=== PATIENT | female | born 1960 | race Caucasian/White ===

== ENCOUNTER → 2016-12-22 | Outpatient (CLI) | payer OTHER ==
[~2016-12-22] MED LIST: ALBU90AE PO; CHOL200024 PO; IBUP400T PO; LEVO125T PO; LIOT5TAB6 PO; LORA10TA75 PO; [UNRECOGNIZED DRUG - REMARK] PO
[2016-12-22 15:12] LABS: ASPARTATE AMINO TRANSFERASE 23 U/L (15-37); BLOOD UREA NITROGEN 14 mg/dL (7-18)
== END | disposition home or self-care (01) ==
LOC: STAR 13:49
PROVIDERS: ATTEND Specialist
DX: Z01.818 Encounter for other preprocedural examination (principal); R19.07 Generalized intra-abdominal and pelvic swelling, mass and lump; D25.9 Leiomyoma of uterus, unspecified; Z90.710 Acquired absence of both cervix and uterus; Z90.722 Acquired absence of ovaries, bilateral; Z86.79 Personal history of other diseases of the circulatory system; Z98.890 Other specified postprocedural states
CPT/HCPCS: 36415; 71020; 80053; 85025; 85610; 85730; 93005

== ENCOUNTER 2017-01-06 08:40 | Day surgery (SDC) | payer OTHER ==
[~2017-01-06] VITALS: Ht 157.5 cm; Wt 90.0 kg
[~2017-01-06 08:40] MED LIST changes: +BUPIVACAINE/PF-EPI 0.25% 1:200K ONE
[2017-01-06 09:14] VITALS: BP 133/81
[2017-01-06] MEDS ORDERED: LACTATED RINGERS 1,000 ML IV SCH (09:17)
[2017-01-06] MEDS ORDERED: SINGULAIR PO (09:18)
[2017-01-06] MEDS ORDERED: morphine SULFATE 10 MG/ML, 1ML ONE (11:47)
[2017-01-06] MEDS ORDERED: MORPHINE SULFATE 4 MG/ML, 1ML IVPush ONE (12:00)
[2017-01-06] MEDS ORDERED: FENTANYL PF 250 MCG/5ML ONE (12:37)
[2017-01-06] MEDS ORDERED: MIDAZOLAM 1 MG/ML, 2ML ONE (12:37)
[2017-01-06] MEDS ORDERED: PROPOFOL 10 MG/ML, 20ML ONE (15:44)
[2017-01-06] MEDS ORDERED: ROCURONIUM 10 MG/ML ONE (15:44)
[2017-01-06] MEDS ORDERED: DEXAMETHASONE 4 MG/ML, 1ML ONE (15:44)
[2017-01-06] MEDS ORDERED: CEFOTETAN 2 GM ONE (15:44)
[2017-01-06] MEDS ORDERED: ONDANSETRON 2MG/ML, 2ML ONE ×2 (15:44→17:18)
[2017-01-06] MEDS ORDERED: METOPROLOL 1 MG/ML, 5ML IV PRN (16:30)
[2017-01-06] MEDS ORDERED: OXYcodone 5 MG/5 ML ORAL.SOL UDC PO PRN (16:30)
[2017-01-06] MEDS ORDERED: ONDANSETRON 2MG/ML, 2ML IVPush PRN (16:30)
[2017-01-06] MEDS ORDERED: LABETALOL 5MG/ML, 20ML IV PRN (16:30)
[2017-01-06] MEDS ORDERED: ALBUTEROL/IPRATROPIUM 2.5MG/0.5MG, 3 ML NPPB PRN (16:30)
[2017-01-06] MEDS ORDERED: MEPERIDINE/PF 25MG/0.5ML IVPush PRN (16:30)
[2017-01-06] MEDS ORDERED: ACETAMINOPHEN 325 MG TABLET PO PRN (16:30)
[2017-01-06] MEDS ORDERED: HYDROmorphone 2 MG/ML, 1ML ONE (17:17)
[2017-01-06] MEDS ORDERED: ACETAMINOPHEN 650 MG/20.3 ML UDC ONE (17:17)
[2017-01-06] MEDS ORDERED: OXYcodone 5 MG/5 ML ORAL.SOL UDC ONE (17:18)
[2017-01-06] MEDS ORDERED: ACETAMINOPHEN 325 MG TABLET ONE (17:18)
[2017-01-06] MEDS ORDERED: FENTANYL PF 100 MCG/2ML ONE (17:18)
[2017-01-06] MEDS: FENTANYL PF 100 MCG/2ML IV PRN ×2 (17:21→17:41)
[2017-01-06] MEDS: HYDROmorphone 1 MG/ML, 1ML IV PRN ×4 (17:27→18:01)
[2017-01-06] MEDS ORDERED: LORATADINE 10 MG TABLET PO SCH (21:00)
[2017-01-06] MEDS ORDERED: KETOROLAC 30 MG/1 ML IM ONE (21:00)
[2017-01-06] MEDS ORDERED: OXYcodone/APAP 5/325MG TABLET PO ONE (21:00)
[2017-01-06] MEDS ORDERED: ONDANSETRON 2MG/ML, 2ML IVPush ONE (21:00)
[2017-01-06] MEDS ORDERED: IBUPROFEN 200 MG TABLET PO PRN (21:00)
[2017-01-06] MEDS ORDERED: ALBUTEROL SULFATE 2.5 MG/3 ML NPPB PRN (21:30)
[2017-01-07] MEDS ORDERED: LEVOTHYROXINE 125 MCG TABLET PO SCH (06:00)
[2017-01-07] MEDS ORDERED: LIOTHYRONINE 5 MCG TABLET PO SCH (09:00)
[2017-01-07] MEDS ORDERED: CHOLECALCIFEROL 1,000 UNIT TABLET PO SCH (09:00)
== END 2017-01-07 00:12 | disposition home or self-care (01) ==
LOC: OUT 08:40 → 4NOR 20:39 → OUT 01-07 00:12
PROVIDERS: ATTEND Specialist
DX: D25.0 Submucous leiomyoma of uterus (principal); N84.0 Polyp of corpus uteri; N83.312 Acquired atrophy of left ovary; N83.311 Acquired atrophy of right ovary; I10 Essential (primary) hypertension; Z72.89 Other problems related to lifestyle; Z90.49 Acquired absence of other specified parts of digestive tract; Z88.3 Allergy status to other anti-infective agents; J45.901 Unspecified asthma with (acute) exacerbation; K21.9 Gastro-esophageal reflux disease without esophagitis; Z82.49 Family history of ischemic heart disease and other diseases of the circulatory system; Z80.0 Family history of malignant neoplasm of digestive organs; Z80.3 Family history of malignant neoplasm of breast; Z83.3 Family history of diabetes mellitus
CPT/HCPCS: 36415; 58571; 86850; 86900; 86923; 88307; J1100; J1170; J2250; J2405; J2704; J3010; J7120; S0074